=== PATIENT | male | born 1980 | race Caucasian/White ===

== ENCOUNTER 2020-07-10 01:37 | Emergency (ER) | payer MEDICAID ==
[~2020-07-10] VITALS: Ht 188 cm; Wt 104.5 kg
[~2020-07-10 01:37] MED LIST: ABILIFY; DEPAKOTE
[2020-07-10 01:38] VITALS: TEMP 98
[2020-07-10 02:01] LABS: BASO # 0.1 (0.0-0.2); BASO % 0.7 % (0.0-2.0); EOS # 1.4 (0.0-0.7); EOS % 13.2 % (0-4.0); GRAN # 4.6 (1.4-6.5); GRAN % 42.2 % (42.2-75.2); HEMATOCRIT 44.4 % (42.0-52.0); HEMOGLOBIN 14.8 g/dl (13.5-18.0); LYMPH # 3.8 (1.2-3.4); LYMPH % 34.6 % (20.0-51.0); MEAN CELL VOLUME 98 fl (80.0-100.0); MEAN CORPUSCULAR HEMOGLOBIN 33 pg (27.0-31.0); MEAN CORPUSCULAR HGB CONC 33 g/dl (33.0-37.0); MEAN PLATELET VOLUME 10.1 fl (7.4-10.4); MONO % 9.1 % (1.7-9.3); PLATELET COUNT 311 K/mm3 (130-400); RED BLOOD COUNT 4.51 M/mm3 (4.20-5.60); REDCELL DISTRIBUTION WIDTH-CV 13.7 % (11.5-14.5)
[2020-07-10 02:10] LABS: ALANINE AMINOTRANSFERASE 17 U/L (4-49); ALKALINE PHOSPHATASE 64 U/L (50-136); ANION GAP 10 mmol/L (7-16); AST,SGOT 16 U/L (15-37); BILIRUBIN,TOTAL 0.4 mg/dL (0.0-1.0); BLOOD UREA NITROGEN 8 mg/dL (9-20); CALCIUM 8.8 mg/dL (8.4-10.2); CARBON DIOXIDE 25 mmol/L (22-30); CHLORIDE 105 mmol/L (98-107); CREATININE, serum 1.03 (0.66-1.25); GLUCOSE 118 mg/dL (74-106); POTASSIUM 3.7 mmol/L (3.4-5.0); SODIUM 140 mmol/L (137-145); TOTAL PROTEIN 7.2 gm/dL (6.4-8.2)
[2020-07-10 02:25] LABS: TROPONIN-I < 0.012 ng/mL (0.000-0.035)
[2020-07-10] MEDS ORDERED: ZITHROMAX Z PA250 MG PO (02:42)
[2020-07-10] MEDS ORDERED: PROAIR HFA0.09 MG/AC IH (02:42)
[2020-07-10 03:00] VITALS: BP 144/70; PULSE 62
--- NOTE | 2020-07-10 08:06 | NUR ---
YOON completed follow-up with client about referral for bed bug infestation. YOON spoke with client and reports that he has worked with one of our social workers already and that the home has been sprayed for bed bugs. Client reports that his landlord is taking care of the infestation. Client reports that he worked with YOON Olson Confirmed that he has resource information. Nothing follows.
== END 2020-07-10 03:00 | disposition home or self-care (01) ==
LOC: COL.ER 01:37
PROVIDERS: Family Medicine
DX: F20.9 Schizophrenia, unspecified (principal); R06.02 Shortness of breath; R07.9 Chest pain, unspecified; R05 Cough; Z20.822 Contact with and (suspected) exposure to COVID-19
CPT/HCPCS: J2930

== ENCOUNTER 2020-07-19 07:34 | Emergency (ER) | payer MEDICAID ==
[~2020-07-19] VITALS: Ht 188 cm; Wt 97.7 kg
[~2020-07-19 07:34] MED LIST changes: +PROAIR HFA0.09 MG/AC IH; +ZITHROMAX Z PA250 MG PO
[2020-07-19 07:36] VITALS: TEMP 98.1
[2020-07-19 08:12] LABS: BASO # 0.1 (0.0-0.2); BASO % 0.7 % (0.0-2.0); EOS # 1.3 (0.0-0.7); EOS % 14.5 % (0-4.0); GRAN # 3.7 (1.4-6.5); GRAN % 42.6 % (42.2-75.2); HEMATOCRIT 45.2 % (42.0-52.0); HEMOGLOBIN 14.8 g/dl (13.5-18.0); LYMPH # 2.7 (1.2-3.4); LYMPH % 31.2 % (20.0-51.0); MEAN CELL VOLUME 99 fl (80.0-100.0); MEAN CORPUSCULAR HEMOGLOBIN 32 pg (27.0-31.0); MEAN CORPUSCULAR HGB CONC 33 g/dl (33.0-37.0); MEAN PLATELET VOLUME 9.8 fl (7.4-10.4); MONO % 10.8 % (1.7-9.3); PLATELET COUNT 319 K/mm3 (130-400); RED BLOOD COUNT 4.58 M/mm3 (4.20-5.60); REDCELL DISTRIBUTION WIDTH-CV 13.8 % (11.5-14.5)
[2020-07-19 08:21] LABS: ALBUMIN 3.7 gm/dL (3.5-5.0); BILIRUBIN,TOTAL 0.2 mg/dL (0.0-1.0); CALCIUM 9.4 mg/dL (8.4-10.2); CREATININE, serum 1.03 (0.66-1.25); POTASSIUM 3.8 mmol/L (3.4-5.0)
[2020-07-19 09:20] VITALS: BP 128/75; PULSE 80
== END 2020-07-19 09:20 | disposition home or self-care (01) ==
LOC: COL.ER 07:34
PROVIDERS: Emergency Medicine
DX: F20.9 Schizophrenia, unspecified (principal); E86.0 Dehydration; F17.210 Nicotine dependence, cigarettes, uncomplicated; Z79.51 Long term (current) use of inhaled steroids

== ENCOUNTER 2020-08-11 05:43 | Emergency (ER) | payer MEDICAID ==
[~2020-08-11] VITALS: Ht 185.4 cm; Wt 104.5 kg
[2020-08-11] MEDS ORDERED: ZYPREXA20 MG PO (05:51)
[2020-08-11] MEDS ORDERED: COGENTIN 1MG1 MG/TAB PO (05:52)
[2020-08-11] MEDS ORDERED: LATUDA80 MG PO (05:53)
[2020-08-11 05:54] VITALS: TEMP 98.7
[2020-08-11 06:05] LABS: BASO # 0.1 (0.0-0.2); BASO % 0.7 % (0.0-2.0); EOS # 1.4 (0.0-0.7); GRAN # 4.3 (1.4-6.5); HEMATOCRIT 45.4 % (42.0-52.0); HEMOGLOBIN 14.8 g/dl (13.5-18.0); LYMPH # 3.7 (1.2-3.4); MEAN CELL VOLUME 100 fl (80.0-100.0); MEAN CORPUSCULAR HEMOGLOBIN 33 pg (27.0-31.0); MEAN CORPUSCULAR HGB CONC 33 g/dl (33.0-37.0); MEAN PLATELET VOLUME 9.8 fl (7.4-10.4); MONO # 1.3 (0.1-0.6); MONO % 11.9 % (1.7-9.3); PLATELET COUNT 379 K/mm3 (130-400); RED BLOOD COUNT 4.54 M/mm3 (4.20-5.60)
[2020-08-11 06:22] LABS: ALBUMIN 4.1 gm/dL (3.5-5.0); BILIRUBIN,TOTAL 0.1 mg/dL (0.0-1.0); CALCIUM 8.9 mg/dL (8.4-10.2); CREATININE, serum 1.04 (0.66-1.25); POTASSIUM 4.6 mmol/L (3.4-5.0); TOTAL PROTEIN 7.6 gm/dL (6.4-8.2)
[2020-08-11] MEDS ORDERED: DOXYCYCLINE 10100 MG PO (06:47)
[2020-08-11] MEDS ORDERED: PREDNISONE20 MG PO (06:47)
[2020-08-11 07:18] VITALS: BP 139/88; PULSE 85
== END 2020-08-11 07:18 | disposition home or self-care (01) ==
LOC: COL.ER 05:43
PROVIDERS: Emergency Medicine
DX: J40 Bronchitis, not specified as acute or chronic (principal); F31.9 Bipolar disorder, unspecified; F20.9 Schizophrenia, unspecified; F17.200 Nicotine dependence, unspecified, uncomplicated; Z79.899 Other long term (current) drug therapy
CPT/HCPCS: J2930; J7030